=== PATIENT | female | born 1940 | race Caucasian/White ===

== ENCOUNTER 2022-04-08 09:06 | Emergency (ER) | payer MEDICARE ==
[~2022-04-08] VITALS: Ht 160 cm; Wt 65.8 kg
[2022-04-08] MEDS ORDERED: LISINOPRIL5 MG PO (09:20)
[2022-04-08] MEDS ORDERED: ARNUITY ELLIPT50 MCG INH (09:21)
[2022-04-08] MEDS ORDERED: PROVENTIL HFA6.7 GM INH (09:21)
[2022-04-08] MEDS ORDERED: VALACYCLOVIR1000 MG PO (09:46)
== END 2022-04-08 09:52 | disposition home or self-care (01) ==
LOC: ED 09:06 → EDBD 09:07 → ED 09:52
DX: B02.9 Zoster without complications (principal); J44.9 Chronic obstructive pulmonary disease, unspecified
CPT/HCPCS: 99282